=== PATIENT | female | born 1980 | race African-American/Black ===

== ENCOUNTER 2017-01-21 08:23 | Emergency (ER) | payer SELFPAY ==
[~2017-01-21] VITALS: Ht 167.6 cm; Wt 86.2 kg
--- NOTE | ~2017-01-21 | CR72 ---
[facility] A Service of [facility] RADIOLOGY TEXT RESULTS PATIENT: MISHA ALVAREZ LOCATION: [facility] : 76 UNIT #: [id number] AGE: [address]: Levi Moreno MD SEX: F ORDER DR: [id number] [facility] [address] [place], [place] [address] [id number] MR#: [id number] Acc #: [id number] NAME: MISHA ALVAREZ : 1980 SEX: F STUDY DATE/TIME: 01/21/2017 8:47 UNIT: [facility] ROOM: STUDY DESCRIPTION: CR Chest Single View Portable Attending Physician: Levi Moreno M.D. Ordering Physician: Levi Moreno M.D. Primary Care Physician: Krystal Reid M.D. MEDICAL IMAGING REPORT This report is preliminary unless electronic signature is present EXAM Frontal chest 01/21/2017 INDICATIONS Cough, body aches, shortness of air. Symptoms began (2 days ago). TECHNIQUE Frontal chest compared with 01/13/2015 COMMENTS Cardiac silhouette is borderline in size and stable. The vascularity is normal. Lungs clear. No effusion or pneumothorax. Gallbladder surgically absent. IMPRESSION 1. Mild dextroscoliosis. Otherwise negative frontal chest. Dictated by... Ephraim Caballero M.D. THIS IS AN ELECTRONICALLY VERIFIED REPORT Ephraim Caballero M.D. at 01/22/2017 8:03 AM AXEL/carter TD: 01/22/2017 03:24 JOB #: [id number] MEDICAL IMAGING REPORT Page 1 of 1 COPY
[~2017-01-21 08:23] MED LIST: BIOTIN PO; FOLIC ACID PO; IBUPROFEN200 M1 PO; PEPCID AC20 M2 PO; PHENERGAN SUPP25 MG PR; PHENERGAN25 MG PO; PRILOSEC20 MG PO; SPRYCEL100 MG PO
[2017-01-21 09:12] LABS: INFLUENZA A NEG (NEG)
[2017-01-21 09:13] LABS: INFLUENZA B NEG (NEG)
== END 2017-01-21 09:25 | disposition home or self-care (01) ==
LOC: CED 08:23
PROVIDERS: Emergency Medicine
DX: J06.9 Acute upper respiratory infection, unspecified (principal)
CPT/HCPCS: 71010; 87651; 87804; 99283